=== PATIENT | female | born 1960 ===

== ENCOUNTER 2025-02-18 15:15 | Inpatient (IN) | payer MEDICARE ==
[~2025-02-18] VITALS: Ht 170.2 cm; Wt 92.7 kg
[~2025-02-18 15:15] MED LIST: LEVOFLOXACIN 750 MG/D5% WATER 150 ML IV SCH
[2025-02-18] MEDS ORDERED: 0.9% SODIUM CHLORIDE 10 ML SYRINGE IVP PRN (15:30)
[2025-02-18] MEDS ORDERED: IOHEXOL 350 MG/ML 100 ML VIAL ONE (15:46)
[2025-02-18 15:55] LABS: PLATELET COUNT (AUTO) 175 K/uL (150-450); RED BLOOD CELL COUNT(AUTO) 5.43 MIL/uL (4.00-5.20); RED CELL DISTRIBUTION WIDTH 13.2 % (11.5-14.5); WHITE BLOOD COUNT (AUTO) 7.7 K/uL (4.5-11.0)
[2025-02-18 15:59] LABS: CALCIUM, TOTAL 8.5 mg/dL (8.8-10.5); CREATININE 0.92 mg/dL (0.60-1.30); GLOMERULAR FILTR. RATE CALC > 60 mL/min (>60); GLUCOSE,RANDOM 263 mg/dL (70-110); SODIUM SERUM 133 mmol/L (136-145); UREA NITROGEN, BLOOD 16 mg/dL (7-18)
[2025-02-18 16:06] LABS: ASPARTATE AMINOTRANSFERASE 17 U/L (15-37); CREATINE KINASE, TOTAL ONLY 91 U/L (26-192); TOTAL PROTEIN, SERUM 7.2 g/dL (6.4-8.2)
[2025-02-18 16:08] LABS: APPEARANCE,URINE CLEAR (CLEAR); GLUCOSE, URINE (UA) >=1000 mg/dL (NEGATIVE); LEUKOCYTE ESTERASE ,URINE NEGATIVE (NEGATIVE); NITRATE,URINE NEGATIVE (NEGATIVE); OCCULT BLOOD,URINE SMALL (NEGATIVE); SPECIFIC GRAVITIY, URINE 1.012 (1.003-1.030)
[2025-02-18 16:09] LABS: LACTIC ACID 2.9 mmol/L (0.4-2.0)
[2025-02-18] MEDS ORDERED: METF-446 PO (16:09)
[2025-02-18] MEDS ORDERED: ATOR40TA28 PO (16:09)
[2025-02-18] MEDS ORDERED: ALLO-97 PO (16:09)
[2025-02-18 16:13] LABS: TROPONIN I-HIGH SENSITIVITY 9 ng/L (<51)
[2025-02-18 16:18] LABS: COVID AG,FIA SOURCE NASAL SWAB
[2025-02-18 16:20] LABS: PH,URINE DRUG SCREEN 7.0 (5.0-8.0)
[2025-02-18 16:20] LABS: PLATELET MORPHOLOGY COMMENT LARGE PLTS PRESENT; RBC MORPHOLOGY COMMENT NORMAL RBC MORPH
[2025-02-18] MEDS: ACETAMINOPHEN 1000 MG/ISO-OSM 100 ML IV ONE (16:24)
[2025-02-18] MEDS: SODIUM CHLORIDE 0.9% 2,100 ML IV ONE (16:24)
[2025-02-18 16:25] LABS: ALCOHOL, URINE DRUG SCREEN NEGATIVE (NEGATIVE); AMPHET/METH SCREEN,URINE NEGATIVE (NEGATIVE); BARBITURATE SCREEN, URINE NEGATIVE (NEGATIVE); CANNABINOID SCREEN,URINE NEGATIVE (NEGATIVE); COCAINE SCREEN,URINE NEGATIVE (NEGATIVE); METHADONE SCREEN, URINE NEGATIVE (NEGATIVE)
[2025-02-18 16:30] LABS: SULFOSALICYLIC ACID,URINE 2+ (Negative)
[2025-02-18 16:31] LABS: INFLUENZA TYPE A NEGATIVE FOR TYPE A (NEGATIVE); INFLUENZA TYPE B NEGATIVE FOR TYPE B (NEGATIVE)
[2025-02-18 16:31] LABS: SQUAMOUS EPITHELIAL CELL,UR Few /LPF (None Seen)
[2025-02-18 16:37] LABS: SARS-COV2 (COVID) ANTIGEN,FIA Negative (Negative)
[2025-02-18] MEDS: CefTRIAXone 1 GM/DEXTROSE 50 ML IV ONE (16:49)
[2025-02-18] MEDS: *CLINICAL-LEVOFLOXACIN IVPB DOSING CLINICAL ONE (16:56)
[2025-02-18] MEDS ORDERED: ONDANSETRON HCL 4 MG/2 ML VIAL IVP PRN (17:00)
[2025-02-18] MEDS ORDERED: HYDROCODONE/ACETAMINOPHEN 5-325 MG TABLET PO PRN (17:00)
[2025-02-18] MEDS ORDERED: MAGNESIUM HYDROXIDE SUSPENSION 30 ML UDCUP PO PRN (17:00)
[2025-02-18] MEDS ORDERED: ZOLPIDEM TARTRATE 5 MG TABLET PO PRN (17:00)
[2025-02-18] MEDS ORDERED: MORPHINE SULFATE 4 MG/ML SYRINGE IVP PRN (17:00)
[2025-02-18] MEDS ORDERED: BISACODYL 10 MG RECTAL RECTAL SUPPOSITORY PR PRN (17:00)
[2025-02-18] MEDS: ATORVASTATIN CALCIUM 40 MG TABLET PO SCH (20:49)
[2025-02-18] MEDS: DOCUSATE SODIUM 100 MG CAPSULE PO SCH (20:49)
[2025-02-18 22:00] VITALS: BP 158/81; PULSE 88; RESP 18; TEMP 98.8; O2SAT 99
[2025-02-19] VITALS (7 sets, daily range): BP systolic 119–154; BP diastolic 78–114; PULSE 73–92; RESP 18; TEMP 98.1–101.3; O2SAT 96–99
[2025-02-19] MEDS: HEPARIN SODIUM,PORCINE 5,000 UNITS/ML VIAL SQ SCH (00:01)
[2025-02-19] MEDS: ACETAMINOPHEN 325 MG TABLET PO PRN (00:06)
[2025-02-19] MEDS: PANTOPRAZOLE SODIUM 40 MG DR TABLET PO SCH (09:06)
[2025-02-19] MEDS ORDERED: SODIUM CHLORIDE 0.9% 500 ML IV ONE (13:12)
[2025-02-19] MEDS: LEVOFLOXACIN 750 MG/D5% WATER 150 ML IV SCH (13:22)
[2025-02-20] VITALS (9 sets, daily range): BP systolic 145–200; BP diastolic 80–167; PULSE 70–80; RESP 18–19; TEMP 98.1–99; O2SAT 93–99
[2025-02-20 06:43] LABS: PLATELET COUNT (AUTO) 133 K/uL (150-450); RED BLOOD CELL COUNT(AUTO) 5.03 MIL/uL (4.00-5.20); RED CELL DISTRIBUTION WIDTH 13.4 % (11.5-14.5); WHITE BLOOD COUNT (AUTO) 5.2 K/uL (4.5-11.0)
[2025-02-20 06:58] LABS: CALCIUM, TOTAL 8.2 mg/dL (8.8-10.5); CREATININE 0.80 mg/dL (0.60-1.30); GLOMERULAR FILTR. RATE CALC > 60 mL/min (>60); GLUCOSE,RANDOM 238 mg/dL (70-110); SODIUM SERUM 132 mmol/L (136-145); UREA NITROGEN, BLOOD 12 mg/dL (7-18)
[2025-02-20] MEDS ORDERED: POTASSIUM CHL 10 MEQ/WATER 50 ML IV PRN (12:15)
[2025-02-20] MEDS: POTASSIUM CHLORIDE 20 MEQ ER TABLET PO PRN (12:52)
[2025-02-21 06:03] VITALS: BP 137/89; PULSE 62; RESP 19; TEMP 97.7; O2SAT 98
[2025-02-21 07:51] LABS: PLATELET COUNT (AUTO) 143 K/uL (150-450); RED BLOOD CELL COUNT(AUTO) 5.14 MIL/uL (4.00-5.20); RED CELL DISTRIBUTION WIDTH 13.1 % (11.5-14.5); WHITE BLOOD COUNT (AUTO) 4.1 K/uL (4.5-11.0)
[2025-02-21 08:01] LABS: CALCIUM, TOTAL 9.0 mg/dL (8.8-10.5); CREATININE 0.87 mg/dL (0.60-1.30); GLOMERULAR FILTR. RATE CALC > 60 mL/min (>60); GLUCOSE,RANDOM 262 mg/dL (70-110); SODIUM SERUM 133 mmol/L (136-145); UREA NITROGEN, BLOOD 11 mg/dL (7-18)
[2025-02-21 08:12] VITALS: BP 129/93; PULSE 59; RESP 18; TEMP 98.2; O2SAT 95
[2025-02-21] MEDS ORDERED: SODIUM CHLORIDE 0.9% 500 ML IV ONE (12:19)
[2025-02-21] MEDS: CefTRIAXone 1 GM/DEXTROSE 50 ML IV SCH (12:33)
[2025-02-21 15:21] VITALS: BP 141/95; PULSE 64; RESP 18; TEMP 98.1; O2SAT 100
[2025-02-21 20:00] VITALS: BP 130/91; PULSE 57; RESP 18; TEMP 98.1; O2SAT 96
[2025-02-22 04:00] VITALS: BP 139/92; PULSE 59; RESP 18; TEMP 98.2; O2SAT 98
[2025-02-22 07:47] LABS: PLATELET COUNT (AUTO) 179 K/uL (150-450); RED BLOOD CELL COUNT(AUTO) 5.31 MIL/uL (4.00-5.20); RED CELL DISTRIBUTION WIDTH 13.2 % (11.5-14.5); WHITE BLOOD COUNT (AUTO) 4.8 K/uL (4.5-11.0)
[2025-02-22 07:55] LABS: CALCIUM, TOTAL 9.1 mg/dL (8.8-10.5); CREATININE 0.88 mg/dL (0.60-1.30); GLOMERULAR FILTR. RATE CALC > 60 mL/min (>60); GLUCOSE,RANDOM 254 mg/dL (70-110); SODIUM SERUM 133 mmol/L (136-145); UREA NITROGEN, BLOOD 14 mg/dL (7-18)
[2025-02-22 08:11] VITALS: BP 139/87; PULSE 67; RESP 18; TEMP 97.9; O2SAT 97
[2025-02-22] MEDS ORDERED: AMLO-258 PO (13:01)
[2025-02-22] MEDS ORDERED: LEVO750T68 PO (13:01)
[2025-02-22] MEDS ORDERED: ALLO-97 PO (13:11)
[2025-02-22] MEDS ORDERED: METF-446 PO (13:11)
[2025-02-22] MEDS ORDERED: ATOR40TA28 PO (13:11)
== END 2025-02-22 15:00 | disposition home or self-care (01) | DRG 871 ==
LOC: EMS 15:15 → EDH 16:48 → 5N 21:52 → 6S 02-21 03:03
PROVIDERS: ADMIT Internal Medicine; ATTEND Internal Medicine
DX: A41.9 Sepsis, unspecified organism (principal); G93.41 Metabolic encephalopathy; N39.0 Urinary tract infection, site not specified; E11.9 Type 2 diabetes mellitus without complications; I10 Essential (primary) hypertension; Z20.822 Contact with and (suspected) exposure to COVID-19; I16.0 Hypertensive urgency; E78.5 Hyperlipidemia, unspecified; Z79.84 Long term (current) use of oral hypoglycemic drugs; Z79.899 Other long term (current) drug therapy
CPT/HCPCS: 70496; 70498; 71045; 80048; 80076; 80307; 81001; 81002; 82550; 83605; 83880; 84132; 84145; 84484; 85025; 85610; 86850; 86870; 86900; 86901; 87040; 87077; 87086; 87186; 87205; 87804; 93005; 96365; 99291; J0131; J0696; J1644; J1956; J7040; 36415-L1; 36415-TC; 70450; 70450-TC